=== PATIENT | male | born 1950 | race Hispanic/Latino ===

== ENCOUNTER 2017-10-16 22:21 | Inpatient (IN) | payer BC, MEDICARE, OTHER ==
[~2017-10-16] VITALS: Ht 167.6 cm; Wt 112.7 kg
[~2017-10-16 22:21] MED LIST: ACET1TAB25 PO; INVOK100TB PO; LEVO500T2 PO; LISI1TAB13 PO; WARF-57 PO
[2017-10-16 23:02] LABS: BASOPHILS % (AUTO) 1.1 % (0.0-5.0); EOSINOPHILS % (AUTO) 4.1 % (0.0-8.0); HEMATOCRIT 38.9 % (42-54); LYMPHOCYTES % (AUTO) 23.5 % (21.0-51.0); MEAN CORPUSCULAR HEMOGLOBIN 29.7 pg (27.0-33.0); MEAN CORPUSCULAR HGB CONC 34.1 g/dL (32.0-36.0); MEAN CORPUSCULAR VOLUME 87.2 fL (79-99); NEUTROPHILS % (AUTO) 62.3 % (40.0-77.0); NUCLEATED RED BLOOD CELLS 0.1 % (0.0-0.19); PLATELET COUNT (AUTO) 78 K/uL (130-400); RED BLOOD CELL COUNT(AUTO) 4.46 MIL/uL (4.50-6.20); RED CELL DISTRIBUTION WIDTH 15.5 % (11.0-15.5); WHITE BLOOD COUNT (AUTO) 3.4 K/uL (4.8-10.8)
[2017-10-16 23:18] LABS: POTASSIUM 3.7 mmol/L (3.5-5.1)
[2017-10-16 23:21] LABS: INR 1.09 (0.85-1.15); PARTIAL THROMBOPLASTIN TIME 29.2 SEC (26.3-35.5); PROTHROMBIN TIME 11.4 SEC (9.6-11.6)
[2017-10-17] MEDS ORDERED: ENOXAPARIN SODIUM 100 MG/1 ML SQ ONE (00:40)
[2017-10-17 02:55] VITALS: BP 153/81
[2017-10-17] MEDS ORDERED: POTASSIUM CHLORIDE 20MEQ/100ML 100 ML IV PRN (04:00)
[2017-10-17] MEDS ORDERED: LIDOCAINE HCL-MPF 1% 2ML VIAL IJ PRN (04:00)
[2017-10-17] MEDS ORDERED: POTASSIUM CHLORIDE 10% ELIXIR 20 MEQ/15 ML UDCUP PO PRN (04:00)
[2017-10-17] MEDS ORDERED: POTASSIUM CHLORIDE 20 MEQ ERTAB PO PRN (04:00)
[2017-10-17 08:00] VITALS: BP 143/88
[2017-10-17] MEDS: PANTOPRAZOLE SODIUM 40 MG TABLET.DR PO SCH (08:51)
[2017-10-17 12:00] VITALS: BP 138/76
[2017-10-17] MEDS: ENOXAPARIN SODIUM 120 MG/0.8ML SQ SCH ×2 (13:28→23:52)
[2017-10-17 16:00] VITALS: BP 160/80
[2017-10-17 19:17] VITALS: BP 138/76
[2017-10-17 23:19] VITALS: BP 139/77
[2017-10-18 03:16] VITALS: BP 150/82
[2017-10-18 05:42] LABS: BASOPHILS % (AUTO) 0.8 % (0.0-5.0); EOSINOPHILS % (AUTO) 3.9 % (0.0-8.0); HEMATOCRIT 38.6 % (42-54); MEAN CORPUSCULAR HEMOGLOBIN 30.1 pg (27.0-33.0); MEAN CORPUSCULAR HGB CONC 34.2 g/dL (32.0-36.0); MONOCYTES % (AUTO) 9.7 % (3.0-13.0); NEUTROPHILS % (AUTO) 54.6 % (40.0-77.0); NUCLEATED RED BLOOD CELLS 0.1 % (0.0-0.19); PLATELET COUNT (AUTO) 76 K/uL (130-400); RED BLOOD CELL COUNT(AUTO) 4.39 MIL/uL (4.50-6.20); RED CELL DISTRIBUTION WIDTH 15.1 % (11.0-15.5); WHITE BLOOD COUNT (AUTO) 2.3 K/uL (4.8-10.8)
[2017-10-18 05:54] LABS: HEMOGLOBIN A1C 7.9 % (4.0-6.0)
[2017-10-18 05:57] LABS: BAND NEUTROPHILS % (MANUAL) 8 % (0-2); LYMPHOCYTES % (MANUAL) 36 % (22-44); MAN.DIFF COMMENT-IMPRESSION MANUAL DIFFERENTIAL; MONOCYTES % (MANUAL) 4 % (2-9); PLATELET MORPHOLOGY COMMENT DECREASED; SEGMENTED NEUTROPHILS % 52 % (40-70)
[2017-10-18 06:02] LABS: ALBUMIN 2.9 g/dL (3.5-5.0); BILIRUBIN,TOTAL 0.8 mg/dL (0.2-1.0); MAGNESIUM 1.8 mg/dL (1.80-2.40); PHOSPHORUS 3.4 mg/dL (2.5-4.9); POTASSIUM 4.1 mmol/L (3.5-5.1); TOTAL PROTEIN, SERUM 6.6 g/dL (6.0-8.3)
[2017-10-18 07:40] VITALS: BP 161/78
[2017-10-18] MEDS: PANTOPRAZOLE SODIUM 40 MG TABLET.DR PO SCH (08:28)
[2017-10-18] MEDS: LISINOPRIL 5 MG TABLET PO SCH (08:28)
[2017-10-18 11:30] VITALS: BP 143/73
[2017-10-18] MEDS: ENOXAPARIN SODIUM 120 MG/0.8ML SQ SCH (13:14)
[2017-10-18 16:00] VITALS: BP 117/75
[2017-10-18] MEDS ORDERED: GLUCAGON 1MG KIT 1 MG ML IM PRN (18:00)
[2017-10-18] MEDS ORDERED: DEXTROSE 50%-WATER 50 ML DISP.SYRIN IV PRN (18:00)
[2017-10-18 19:32] VITALS: BP 129/69
[2017-10-18] MEDS: INSULIN HUMULIN R 100 UNIT/ML 3ML SQ SCH (21:00)
[2017-10-18 23:07] VITALS: BP 170/72
[2017-10-19] MEDS: ENOXAPARIN SODIUM 120 MG/0.8ML SQ SCH ×2 (00:08→12:46)
[2017-10-19 03:13] VITALS: BP 151/86
[2017-10-19] MEDS: INSULIN HUMULIN R 100 UNIT/ML 3ML SQ SCH ×4 (05:49→21:00)
[2017-10-19 05:54] LABS: BASOPHILS % (AUTO) 1.2 % (0.0-5.0); HEMATOCRIT 38.6 % (42-54); LYMPHOCYTES % (AUTO) 31.1 % (21.0-51.0); MEAN CORPUSCULAR VOLUME 88.3 fL (79-99); MONOCYTES % (AUTO) 8.2 % (3.0-13.0); NEUTROPHILS % (AUTO) 55.5 % (40.0-77.0); NUCLEATED RED BLOOD CELLS 0.1 % (0.0-0.19); PLATELET COUNT (AUTO) 80 K/uL (130-400); RED BLOOD CELL COUNT(AUTO) 4.37 MIL/uL (4.50-6.20); RED CELL DISTRIBUTION WIDTH 15.5 % (11.0-15.5); WHITE BLOOD COUNT (AUTO) 2.7 K/uL (4.8-10.8)
[2017-10-19 06:06] LABS: CREATININE 0.9 mg/dL (0.5-1.5); MAGNESIUM 1.8 mg/dL (1.80-2.40); PHOSPHORUS 3.6 mg/dL (2.5-4.9)
[2017-10-19 07:31] LABS: BASOPHILS % (MANUAL) 1 % (0-2); EOSINOPHILS % (MANUAL) 3 % (1-6); LYMPHOCYTES % (MANUAL) 29 % (22-44); MAN.DIFF COMMENT-IMPRESSION MANUAL DIFFERENTIAL; MONOCYTES % (MANUAL) 4 % (2-9); PLATELET MORPHOLOGY COMMENT DECREASED; REACTIVE LYMPHOCYTES 1 % (0-0); SEGMENTED NEUTROPHILS % 62 % (40-70)
[2017-10-19 07:53] VITALS: BP 150/75
[2017-10-19] MEDS: LISINOPRIL 5 MG TABLET PO SCH (09:21)
[2017-10-19] MEDS: PANTOPRAZOLE SODIUM 40 MG TABLET.DR PO SCH (09:21)
[2017-10-19 12:23] VITALS: BP 136/70
[2017-10-19 16:00] VITALS: BP 141/78
[2017-10-19 20:25] VITALS: BP 138/78
[2017-10-20] VITALS: BP 147/84
[2017-10-20] MEDS: ENOXAPARIN SODIUM 120 MG/0.8ML SQ SCH ×2 (00:48→12:51)
[2017-10-20 04:00] VITALS: BP 150/71
[2017-10-20] MEDS: INSULIN HUMULIN R 100 UNIT/ML 3ML SQ SCH ×4 (06:07→21:00)
[2017-10-20 08:14] VITALS: BP 149/78
[2017-10-20] MEDS: PANTOPRAZOLE SODIUM 40 MG TABLET.DR PO SCH (09:27)
[2017-10-20] MEDS: LISINOPRIL 5 MG TABLET PO SCH (09:28)
[2017-10-20 12:00] VITALS: BP 134/75
[2017-10-20 16:00] VITALS: BP 142/92
[2017-10-20 21:07] VITALS: BP 137/69
[2017-10-21] VITALS (8 sets, daily range): BP systolic 122–158; BP diastolic 57–86
[2017-10-21] MEDS: ENOXAPARIN SODIUM 120 MG/0.8ML SQ SCH ×2 (00:26→17:36)
[2017-10-21] MEDS: INSULIN HUMULIN R 100 UNIT/ML 3ML SQ SCH ×4 (06:05→21:00)
[2017-10-21] MEDS: PANTOPRAZOLE SODIUM 40 MG TABLET.DR PO SCH (10:09)
[2017-10-21] MEDS: LISINOPRIL 5 MG TABLET PO SCH (10:09)
[2017-10-22] MEDS: ENOXAPARIN SODIUM 120 MG/0.8ML SQ SCH ×2 (00:22→12:04)
[2017-10-22 04:00] VITALS: BP 168/76
[2017-10-22] MEDS: INSULIN HUMULIN R 100 UNIT/ML 3ML SQ SCH ×2 (05:55→12:05)
[2017-10-22] MEDS: PANTOPRAZOLE SODIUM 40 MG TABLET.DR PO SCH (07:40)
[2017-10-22] MEDS: LISINOPRIL 5 MG TABLET PO SCH (07:40)
[2017-10-22 08:00] VITALS: BP 161/76
[2017-10-22 11:00] VITALS: BP 131/60
== END 2017-10-22 16:30 | disposition home or self-care (01) | DRG 300 ==
LOC: EDH 22:21 → OBSVTOIN 10-17 01:22 → EDHIP 10-17 01:22 → 3CH 10-17 02:13
PROVIDERS: ADMIT Family Medicine; ATTEND Family Medicine
DX: I82.432 Acute embolism and thrombosis of left popliteal vein (principal); Z68.41 Body mass index [BMI] 40.0-44.9, adult; I10 Essential (primary) hypertension; E11.9 Type 2 diabetes mellitus without complications; R60.0 Localized edema; I87.2 Venous insufficiency (chronic) (peripheral); D69.6 Thrombocytopenia, unspecified; I89.0 Lymphedema, not elsewhere classified; E66.9 Obesity, unspecified; Z74.01 Bed confinement status; Z79.01 Long term (current) use of anticoagulants; Z79.4 Long term (current) use of insulin; Z86.718 Personal history of other venous thrombosis and embolism
CPT/HCPCS: 36415; 80048; 80053; 80061; 81241; 81291; 82948; 83036; 83090; 83735; 84100; 85025; 85210; 85240; 85303; 85305; 85610; 85730; 85732; 86022; 86038; 86160; 86215; 86235; 86701; 87390; 93005; 93970; C9113; J1650; J1815

== ENCOUNTER 2019-06-12 13:52 | Emergency (ER) | payer OTHER, MEDICARE ==
[~2019-06-12 13:52] MED LIST changes: -ACET1TAB25 PO; -INVOK100TB PO; -LEVO500T2 PO; -LISI1TAB13 PO; +LISI1TAB29 PO; -WARF-57 PO
[2019-06-12] MEDS ORDERED: ACETAMINOPHEN EXTRA STRENGTH 500 MG TABLET ONE (14:15)
== END 2019-06-12 15:14 | disposition home or self-care (01) ==
LOC: EDH 13:52
DX: J10.1 Influenza due to other identified influenza virus with other respiratory manifestations (principal); E11.9 Type 2 diabetes mellitus without complications; I10 Essential (primary) hypertension; Z87.891 Personal history of nicotine dependence
CPT/HCPCS: 87804

== ENCOUNTER → 2019-08-12 | Outpatient (CLI) | payer OTHER, MEDICARE | LOC: RAH 10:03 | PROVIDERS: ATTEND Internal Medicine Gastroenterology | DX: R94.5 Abnormal results of liver function studies (principal); R76.8 Other specified abnormal immunological findings in serum; R16.1 Splenomegaly, not elsewhere classified; D69.6 Thrombocytopenia, unspecified | CPT/HCPCS: 76700; 93975 ==

== ENCOUNTER 2019-09-02 15:13 | Observation (INO) | payer OTHER, MEDICARE ==
[~2019-09-02] VITALS: Ht 172.7 cm; Wt 105.3 kg
[2019-09-02] MEDS ORDERED: IPRATROPIUM/ALBUTEROL SULFATE 3 ML SOLUTION IH PRN (17:00)
[2019-09-02] MEDS ORDERED: HYDRALAZINE HCL 20 MG/ML VIAL IV PRN (17:00)
[2019-09-02] MEDS ORDERED: LABETALOL 20 MG/4 ML DISP.SYRIN IV PRN (17:00)
[2019-09-02 17:11] LABS: BASOPHILS % (AUTO) 0.3 % (0.0-5.0); EOSINOPHILS % (AUTO) 2.5 % (0.0-8.0); HEMATOCRIT 37.9 % (42-54); LYMPHOCYTES % (AUTO) 22.3 % (21.0-51.0); MEAN CORPUSCULAR HEMOGLOBIN 30.2 pg (27.0-33.0); MEAN CORPUSCULAR HGB CONC 34.3 g/dL (32.0-36.0); MEAN CORPUSCULAR VOLUME 87.9 fL (79-99); MONOCYTES % (AUTO) 10.8 % (3.0-13.0); NEUTROPHILS % (AUTO) 63.8 % (40.0-77.0); PLATELET COUNT (AUTO) 70 K/uL (130-400); RED BLOOD CELL COUNT(AUTO) 4.31 MIL/uL (4.50-6.20); RED CELL DISTRIBUTION WIDTH 13.1 % (11.0-15.5); WHITE BLOOD COUNT (AUTO) 3.2 K/uL (4.8-10.8)
[2019-09-02 17:28] LABS: CREATININE 1.1 mg/dL (0.5-1.5)
[2019-09-02 17:30] LABS: INR 1.08 (0.85-1.15); PARTIAL THROMBOPLASTIN TIME 28.2 SEC (26.3-35.5); PROTHROMBIN TIME 11.6 SEC (9.6-11.6)
[2019-09-02 17:32] LABS: BILIRUBIN,TOTAL 0.9 mg/dL (0.2-1.0); TOTAL PROTEIN, SERUM 7.6 g/dL (6.0-8.3)
[2019-09-02] MEDS ORDERED: IOHEXOL-350 75 ML VIAL IV ONE (17:39)
[2019-09-02 19:20] LABS: B-TYPE NATRIURETIC PEPTIDE 9 pg/mL (0-100)
[2019-09-02] MEDS ORDERED: INSULIN HUMULIN R 100 UNIT/ML 3ML ONE (19:44)
[2019-09-02 20:10] VITALS: BP 123/77
[2019-09-02 20:24] LABS: HEMOGLOBIN A1C 10.1 % (4.0-6.0)
[2019-09-02] MEDS: INSULIN R PO SS1 SQ SCH (21:00)
[2019-09-02 23:35] VITALS: BP 125/72
[2019-09-03 04:05] VITALS: BP 112/64
[2019-09-03 04:37] LABS: HEMATOCRIT 37.8 % (42-54); MEAN CORPUSCULAR HEMOGLOBIN 30.2 pg (27.0-33.0); MEAN CORPUSCULAR HGB CONC 33.9 g/dL (32.0-36.0); MEAN CORPUSCULAR VOLUME 89.2 fL (79-99); RED BLOOD CELL COUNT(AUTO) 4.24 MIL/uL (4.50-6.20); RED CELL DISTRIBUTION WIDTH 13.2 % (11.0-15.5); WHITE BLOOD COUNT (AUTO) 3.1 K/uL (4.8-10.8)
[2019-09-03 04:56] LABS: ALBUMIN 2.8 g/dL (3.5-5.0); BILIRUBIN,TOTAL 0.9 mg/dL (0.2-1.0); CREATININE 1.1 mg/dL (0.5-1.5); MAGNESIUM 1.8 mg/dL (1.80-2.40); PHOSPHORUS 4.1 mg/dL (2.5-4.9); POTASSIUM 3.8 mmol/L (3.5-5.1); TOTAL PROTEIN, SERUM 7.2 g/dL (6.0-8.3)
[2019-09-03 07:00] VITALS: BP 114/65
[2019-09-03] MEDS: INSULIN R PO SS1 SQ SCH ×2 (07:09→11:53)
[2019-09-03] MEDS ORDERED: PANTOPRAZOLE SODIUM 40 MG TABLET.DR PO SCH (09:00)
[2019-09-03 11:00] VITALS: BP 123/70
[2019-09-03] MEDS ORDERED: APIXABAN 5 MG TABLET PO SCH (12:00)
--- NOTE | 2019-09-03 12:47 | NUR ---
DISCHARGE INSTRUCTIONS GIVEN TO PATIENT. TEACH BACK METHOD USED TO EDUCATE PATIENT ON NEW MED PRESCRIBED, DIET, S.S TO MONITOR FOR, WHEN TO CALL MD, AND F/U APPOINTMENT. PATIENT WAS GIVEN 1ST DOSE OF ELIQUIS 10MG. HE WAS INSTRUCTED TO TAKE ANOTHER ONE TONIGHT. HE WILL BE TAKING 10MG BID FOR 1 WEEK THEN 5MG PO BID FOR 30 DAYS. PATIENT VERBALIZED UNDERSTANDING. PIV REMOVED. TELE PACK REMOVED AND RETURNED. ALL BELONGINGS WERE PACKED.PATIENT WAS SAFELY WHEELED OUT BY NURIA LIN.
== END 2019-09-03 12:42 | disposition home or self-care (01) ==
LOC: EDH 15:13 → EDHIP 16:55 → 4BH 20:08
PROVIDERS: ADMIT Family Medicine; ATTEND Family Medicine
DX: I82.4Z3 Acute embolism and thrombosis of unspecified deep veins of distal lower extremity, bilateral (principal); I10 Essential (primary) hypertension; Z90.49 Acquired absence of other specified parts of digestive tract
CPT/HCPCS: 36415 ×2; 71275; 80053 ×2; 82948 ×4; 83036; 83735; 83880; 84100; 85025; 85027; 85610; 85730; 93970; 96372; 99285; G0378 ×9; J1815 ×3; Q9967

== ENCOUNTER → 2020-06-29 | Outpatient (CLI) | payer OTHER | END | disposition home or self-care (01) | LOC: RAH 08:33 | PROVIDERS: ATTEND Internal Medicine Gastroenterology | DX: K74.60 Unspecified cirrhosis of liver (principal); R16.2 Hepatomegaly with splenomegaly, not elsewhere classified | CPT/HCPCS: 76700; 93975 ==

== ENCOUNTER → 2020-08-02 | Outpatient (CLI) | payer OTHER | END | disposition home or self-care (01) | LOC: RAH 10:00 | PROVIDERS: ATTEND Internal Medicine Gastroenterology | DX: R93.2 Abnormal findings on diagnostic imaging of liver and biliary tract (principal); K74.60 Unspecified cirrhosis of liver; R16.0 Hepatomegaly, not elsewhere classified | CPT/HCPCS: 74170 ==